=== PATIENT | female | born 1985 | race Caucasian/White ===

== ENCOUNTER 2024-05-23 01:25 | Emergency (ER) | payer BC ==
--- OUTSIDE RECORDS SUMMARY | 2024-05-23 01:29 | XMS REPORT | Continuity of Care Document ---
Author Name Unknown Address [address] [place] [address] [facility] Address [address] [place] [address] Care Team Providers Care Bin Packer Name Role Phone MILY DE LOS SANTOS Attending Clinician Unavailable RUBEN CLAUDIO Attending Clinician UnavailDESTINEE Murry Attending Clinician Unava ilable LAB90 Attending Clinician Unavailable CODY BAPTISTE Attending Clinician Unavail Candace Capone MD Attending Clinician CANDACE BARRON M.D. Attending Clinician FAVIOLA Canela M.D. Attending Clinician Unavailpriscila MENESES, USROOM2 Attending Clinician Unavailsasha MENESES, USROOM1 Attending Clinician Unavailsasha e PIANO TECHNICIAN, ROOM1 Attending Clinician Unavailable PIANO TECHNICIAN, ROOM2 Attending Clinician Unavailable ADULT, HEMOPHILIA Attending Clinician Unavailabl e PIANO TECHNICIAN, ROOM4 Attending Clinician Unavailable Doctor Unassigned, [place] Attending Clinician U AWILDA Leyva Attending Clinician Awilda Damico Attending Clinician Payers Payer Name Policy Type Policy Number Effective Date Expirati on Date Source BCBS 2 [id number] 2020 00:00:00 Problems Condition Name Condition Details Condition Category Status Onset Date Resolution Date Last Treatment Date Treating Clinician Comments Source Gastroesop hageal reflux disease without esophagiti s Gastroesop hageal reflux disease without esophagiti s Disease Active 2024-0 3-06 00:00: 00 Sarahi Lawrence - Externa l Generalize d anxiety disorder Generalize d Anxiety Disorder Problem Active 1-18 00:00: 00 [facility] Sinusitis Sinusitis Disease Active 7-15 00:00: 00 Sarahi Lawrence - Externa l Sinus headache Sinus headache Disease Active 7-15 00:00: 00 Sarahi Mondragonold - Externa l Vaginal discharge Vaginal discharge Disease Active 5-01 00:00: 00 [facility] 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 5-01 00:00: 00 [facility] Anemia in Anemia in Disease Active 5-01 00:00: 00 [facility] Screening for STD (sexually transmitte d disease) Screening for STD (sexually transmitte d disease) Disease Active 4-14 00:00: 00 [facility] High-risk in third trimester High-risk in third trimester Disease Active 1-27 00:00: 00 [facility] Encounter for screening for Streptococ cus B Encounter for screening for Streptococ cus B Disease Active 1-14 00:00: 00 [facility] High-risk in second trimester High-risk in second trimester Disease Active 2019-02 2-16 00:00: 00 [facility] Elevated LFTs Elevated LFTs Disease Active 9-30 00:00: 00 [facility] Urinary problem in female Urinary problem in female Disease Active 9-30 00:00: 00 [facility] High risk High Risk Problem Active 8-06 00:00: 00 [facility] 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 Problem Active 7-15 00:00: 00 [facility] Abnormal maternal glucose tolerance, antepartum Abnormal maternal glucose tolerance, antepartum Disease Active 0 6-29 00:00: 00 [facility] Hemophilia carrier Hemophilia carrier Disease Active 6- 00:00: 00 [facility] related nausea, antepartum related nausea, antepartum Disease Active 6-26 00:00: 00 [facility] Multigravi da of advanced maternal age in first trimester Multigravi da of advanced maternal age in first trimester Disease Active 6 00:00: 00 [facility] Supervisio n of high risk , antepartum Supervisio n of high risk , antepartum Disease Active 6 00:00: 00 [facility] Subchorion ic hemorrhage of placenta in first trimester, single or unspecifie d fetus Subchorion ic hemorrhage of placenta in first trimester, single or unspecifie d fetus Disease Active 6 00:00: 00 [facility] test positive Test Positive Problem Active 6 00:00: 00 [facility] Asymptomat ic 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 Asymptomat ic 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 Problem Active 2-11 00:00: 00 [facility] Irregular periods Irregular Periods Problem Active 211 00:00: 00 [facility] Female infertilit y Female Infertilit y Problem Active 2018-02 0-04 00:00: 00 [facility] Cyst of left ovary Cyst of Left Ovary Problem Active 8-22 00:00: 00 [facility] Left lower quadrant pain Left Lower Quadrant Pain Problem Active 7-25 00:00: 00 [facility] Gynecologi mauro examinatio n abnormal Gynecologi mauro Examinatio n Abnormal Problem Active - 00:00: 00 [facility] Simple goiter Simple Goiter Problem Active 1-09 00:00: 00 [facility] Contracept ion care education Contracept ion Care Education Problem Active - 00:00: 00 [facility] 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 [facility] Vaginal discharge Vaginal discharge Problem Active [facility] Abnormal thyroid blood test Abnormal thyroid blood test Problem Active [facility] Urinary problem in female Urinary problem in female Problem Active [facility] Encounter for supervisio n of high risk in second trimester, antepartum Encounter for supervisio n of high risk in second trimester, antepartum Problem Active [facility] Anemia in Anemia in Problem Active [facility] Encounter for screening for Streptococ cus B Encounter for screening for Streptococ cus B Problem Active [facility] Supervisio n of high risk in third trimester Supervisio n of high risk in third trimester Problem Active [facility] History of hemophilia B History of hemophilia B Problem Resolve d [facility] Encounter for consultati on Encounter for consultati on Problem Active [facility] Encounter for IUD insertion Encounter for IUD insertion Problem Active [facility] Counseling for control, intrauteri ne device Counseling for control, intrauteri ne device Problem Active [facility] Encounter for screening for infections with a predominan tly sexual mode of transmissi on Encounter for screening for infections with a predominan tly sexual mode of transmissi on Problem Active [facility] Allergies, Adverse Reactions, Alerts Allergy Name Allergy Type Status Severity Reaction(s) Onset Date Inactive Date Treating Clinician Comments Source Penicill ins Propensi ty to adverse reaction s Active 06-10 00:00: 00 [facility] Penicill in Propensi ty to adverse reaction s Active Anaphylaxis 08-05 00:00: 00 [facility] Penicill in Propensi ty to adverse reaction s Active Anaphylaxis 08-05 00:00: 00 [facility] PENICILL IN DRUG INGREDI Active High Anaphylaxis 08-05 00:00: 00 [facility] PENICILL IN Allergy to substanc e Active Fatal Anaphylaxis 02-10 00:00: 00 [facility] Penicill ins Propensi ty to adverse reaction s Active Anaphylaxis 02-10 00:00: 00 Sarahi Lawrence - Externa l NO KNOWN ALLERGIE S Drug Class Active [facility] Penicill ins Allergy to drug (finding ) Active [facility] PENICILL IN G SODIUM Allergy to substanc e Active [facility] Family History Family Member Diagnosis Comments Start Date Stop Date Sourc e Unknown Family Member Family history of hemophilia A Other [facility] Mother Family history of hypertension [facility] Mother Family history of thyroid disease [facility] Father Family history of hemophilia A [facility] Sister Family history of 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 [facility] Social History Social Habit Start Date Stop Date Quantity Comments Source Sexual orientation 2023-04-14 17:28:40 Heterosexual (finding) Sarahi Lawrence - External ASSERTION Not Sarahi Lawrence - External History SDOH Alcohol [facility] History SDOH Alcohol Binge [facility] Exposure to SARS-CoV-2 (event) Not sure [facility] History of Social function 2024-05-19 00:00:00 2024-05-19 00:00:00 Sarahi Castro External Tobacco use and exposure 2020-06-20 00:00:00 2020-06-20 00:00:00 Never used [facility] Alcohol intake 2020-06-20 00:00:00 2020-06-20 00:00:00 Current drinker of alcohol (finding) [facility] Alcohol Comment 2020-06-10 00:00:00 2020-06-10 00:00:00 social [facility] Sex 2020-05-09 17:32:10 2020-05-09 17:32:10 Female (finding) Sarahi Lawrence - External History SDOH Alcohol Frequency 2019-08-06 00:00:00 2019-08-06 00:00:00 1 [facility] Sex assigned at 1985 00:00:00 1985 00:00:00 F Sarahi Lawrence - External Smoking Status Start Date Stop Date Source Never smoked tobacco Sarahi Lawrence - External Medications Ordered Medication Name Filled Medication Name Start Date Stop Date Current Medication? Ordering Clinician Indication Dosage Frequency Signature (SIG) Comments Components Source Azithromyci n 250 MG oral Tablet 05-19 00:00: 00 05-25 04:59 :00 Yes [id number] Take 2 tablets by mouth on day 1 then 1 tablet by mouth daily for 4 days thereafter .. Sarahi perez Sertraline HCl 50 MG oral Tablet 04-15 10:57: 11 04-15 00:00 :00 No Sarahi perez Levonorgest rel (MIRENA, 52 MG, IU) 04-15 10:33: 59 04-15 00:00 :00 No by intrauteri ne route Sarahi perez CLINDAMYCIN PHOSPHATE,T OPICAL, 1 % apply externally SWAB 04-15 10:33: 59 04-15 00:00 :00 No clindamyci n phosphate 1 % topical swab Sarahi perez Pantoprazol e Sodium 40 MG oral Tablet Delayed Response 04-15 00:00: 00 05-19 00:00 :00 No [id number] 40mg QD Take 1 tablet (40 mg total) by mouth daily. Sarahi perez Ciprofloxac in HCl (Cipro) 500 MG oral Tablet 03-08 00:00: 00 03-16 05:59 :00 No [id number] 500mg Take 1 tablet (500 mg total) by mouth 2 times daily for 7 days Sarahi perez Sertraline HCl 100 MG oral Tablet 04-15 00:00: 00 Yes Sarahi perez Levonorgest rel (MIRENA, 52 MG, IU) 08-24 15:23: 17 Yes by intrauteri ne route Sarahi perez CLINDAMYCIN PHOSPHATE,T OPICAL, 1 % apply externally SWAB 08-24 15:23: 17 Yes clindamyci n phosphate 1 % topical swab Sarahi perez Mirtazapine 15 MG oral Tablet 07-05 00:00: 00 Yes [id number] 15mg Take 1 tablet (15 mg total) by mouth nightly Sarahi perez norethindro ne (Aygestin) 5 MG tablet 06-20 00:00: 00 09-19 04:59 :00 No [id number] 5mg QD Take 1 tablet (5 mg total) by mouth 1 (one) time each day. Take PRN break through bleeding [facility] ferrous sulfate 325 (65 Fe) MG tablet 06-10 14:04: 06 Yes 325mg QD Take 325 mg by mouth 1 (one) time each day with breakfast. [facility] Ferrous Sulfate 325 (65 Fe) MG Oral Tablet Ferrous Sulfate 325 (65 Fe) MG Oral Tablet 2019-02 00:00: 00 Yes FAVIOLA SANTAMARIA M.D. Take 1 tablet by mouth twice a day [facility] Azelaic Acid (Finacea) 15 % apply externally Foam 8-05 00:00: 00 Yes Finacea 15 % topical foam Sarahi perez 25/iron fum/folic/d goel (-1 ORAL) 08-05 20:05: 52 Yes Take by mouth. [facility] proMETHazin e 25 mg tablet 08-05 00:00: 00 Yes [id number] 25mg Take 1 tablet by mouth every 4 (four) hours as needed for Nausea and Vomiting (N/V). [facility] Vitamin TABS Vitamin TABS Yes [employer] [facility] Immunizations Ordered Immunization Name Filled Immunization Name Date Status Comments Source Covid-19 Vaccine (Lorenzo) 2020-07-04 00:00:00 Completed Sarahi Seybold - External Tdap (Adacel) 2020-01-12 00:00:00 Completed [facility] Influenza, seasonal, injectable 2019-12-08 00:00:00 Completed [facility] Fluzone Quadrivalent 0.5 ML Intramuscular Suspension 2019-12-08 00:00:00 Completed [facility] Covid-19 Vaccine (Lorenzo) Unknown Completed Sarahi Seybold - External Influenza Virus Vaccine, No Preserv, age 6 months and up Unknown Completed Sarahi Seybold - External Influenza, Seasonal, Injectable Unknown Completed Sarahi Mondragonold - External Tdap- (Boostrix, Adacel) Unknown Completed Sarahi Mondragonold - External Covid-19 Vaccine (Lorenzo) Unknown Completed Sarahi Seybold - External Influenza Virus Vaccine, No Preserv, age 6 months and up Unknown Completed Sarahi Mondragonold - External AFLURIA TRIVALENT MDV Unknown Completed Sarahi Seybold - External Tdap- (Boostrix, Adacel) Unknown Completed Sarahi Haileybold - External Vital Signs Vital Name Observation Time Observation Value Comments S geraldine Systolic blood pressure 2024-05-19 21:33:00 114 mm[Hg] Sarahi Seybold - External Diastolic blood pressure 2024-05-19 21:33:00 64 mm[Hg] Sarahi Haileybold - External Heart rate 2024-05-19 21:33:00 111 /min Sarahi Lawrence - External Body temperature 2024-05-19 21:33:00 36.78 Emelia Sarahi Haileybold - External Respiratory rate 2024-05-19 21:33:00 20 /min Sarahi Mondragonold - External Body height 2024-05-19 21:33:00 160 cm Saarhi Mondragonold - External Body weight 2024-05-19 21:33:00 60.895 kg Sarahi Mondragonold - External BMI 2024-05-19 21:33:00 23.78 kg/m2 Sarahi Haileybold - External Oxygen saturation in Arterial blood by Pulse oximetry 2024-05-19 21:33:00 98 /min Sarahi Mondragonold - External Body Weight 2023-09-08 00:00:00 131.8 [lb_av] [facility] BP Diastolic 2023-09-08 00:00:00 82 mm[Hg] [facility] Height 2023-09-08 00:00:00 63 [in_i] [facility] BMI (Body Mass Index) 2023-09-08 00:00:00 23.3 kg/m2 [facility] BP Systolic 2023-09-08 00:00:00 117 mm[Hg] [facility] Systolic blood pressure 2023-04-16 16:57:00 98 mm[Hg] Sarahi Seybold - External Diastolic blood pressure 2023-04-16 16:57:00 64 mm[Hg] Sarahi Haileybold - External Heart rate 2023-04-16 16:57:00 68 /min Sarahi Mondragonold - External Body temperature 2023-04-16 16:57:00 36.56 Emelia Sarahi Haileybjenna - External Respiratory rate 2023-04-16 16:57:00 18 /min Sarahi Lawrence - External Body height 2023-04-16 16:57:00 160 cm Sarahi Lawrence - External Body weight 2023-04-16 16:57:00 58.968 kg Sarahi Haileybjenna - External BMI 2023-04-16 16:57:00 23.03 kg/m2 Sarahi Haileybold - External Oxygen saturation in Arterial blood by Pulse oximetry 2023-04-16 16:57:00 99 /min Sarahi Seybold - External Systolic blood pressure 2020-06-20 19:56:00 113 mm[Hg] [facility] Diastolic blood pressure 2020-06-20 19:56:00 81 mm[Hg] [facility] Heart rate 2020-06-20 19:56:00 78 /min [facility] Body temperature 2020-06-20 19:56:00 36.67 Emelia [facility] Body height 2020-06-20 19:56:00 157.5 cm [facility] Body weight 2020-06-20 19:56:00 55.792 kg [facility] BMI 2020-06-20 19:56:00 22.50 kg/m2 [facility] Systolic blood pressure 2019-08-06 19:14:00 104 mm[Hg] [facility] Diastolic blood pressure 2019-08-06 19:14:00 67 mm[Hg] [facility] Heart rate 2019-08-06 19:14:00 81 /min [facility] Body temperature 2019-08-06 19:14:00 36.5 Emelia [facility] Respiratory rate 2019-08-06 19:14:00 16 /min [facility] Body height 2019-08-06 19:14:00 160 cm [facility] Body weight 2019-08-06 19:14:00 56.048 kg [facility] BMI 2019-08-06 19:14:00 21.89 kg/m2 [facility] Systolic blood pressure 2020-05-24 09:35:00 111 mm[Hg] Location: LUE; Position: Sitting [facility] Diastolic blood pressure 2020-05-24 09:35:00 72 mm[Hg] Location: LUE; Position: Sitting [facility] Body height 2020-05-24 09:35:00 62 [in_us] [facility] Weight 2020-05-24 09:35:00 121.5 [lb_av] [facility] Body mass index (BMI) [Ratio] 2020-05-24 09:35:00 22.22 kg/m2 [facility] Body temperature 2020-05-24 09:35:00 97.6 [degF] Method: Oral [facility] Heart Rate 2020-05-24 09:35:00 81 /min Quality: Normal [facility] O2 SAT 2020-05-24 09:35:00 98 % [facility] Systolic blood pressure 2020-04-12 14:45:00 119 mm[Hg] Location: LUE; Position: Sitting [facility] Diastolic blood pressure 2020-04-12 14:45:00 80 mm[Hg] Location: LUE; Position: Sitting [facility] Body height 2020-04-12 14:45:00 62 [in_us] [facility] Weight 2020-04-12 14:45:00 120.5 [lb_av] [facility] Body mass index (BMI) [Ratio] 2020-04-12 14:45:00 22.04 kg/m2 [facility] Body temperature 2020-04-12 14:45:00 98.2 [degF] Method: Temporal [facility] Heart Rate 2020-04-12 14:45:00 81 /min [facility] O2 SAT 2020-04-12 14:45:00 98 % [facility] Heart Rate 2020-03-22 08:17:00 99 /min [facility] O2 SAT 2020-03-22 08:17:00 98 % [facility] Systolic blood pressure 2020-03-22 08:17:00 116 mm[Hg] Location: LUE; Position: Sitting [facility] Diastolic blood pressure 2020-03-22 08:17:00 71 mm[Hg] Location: LUE; Position: Sitting [facility] Body height 2020-03-22 08:17:00 62 [in_us] [facility] Weight 2020-03-22 08:17:00 145.5 [lb_av] [facility] Body mass index (BMI) [Ratio] 2020-03-22 08:17:00 26.61 kg/m2 [facility] Body temperature 2020-03-22 08:17:00 98.3 [degF] Method: Temporal [facility] Systolic blood pressure 2020-03-15 15:35:00 108 mm[Hg] Location: LUE; Position: Sitting [facility] Diastolic blood pressure 2020-03-15 15:35:00 72 mm[Hg] Location: LUE; Position: Sitting [facility] Body height 2020-03-15 15:35:00 62 [in_us] [facility] Weight 2020-03-15 15:35:00 146.25 [lb_av] [facility] Body mass index (BMI) [Ratio] 2020-03-15 15:35:00 26.75 kg/m2 [facility] Body temperature 2020-03-15 15:35:00 99.2 [degF] Method: Temporal [facility] Heart Rate 2020-03-15 15:35:00 105 /min [facility] O2 SAT 2020-03-15 15:35:00 98 % [facility] Systolic blood pressure 2020-03-08 15:29:00 115 mm[Hg] Location: LUE; Position: Sitting [facility] Diastolic blood pressure 2020-03-08 15:29:00 75 mm[Hg] Location: LUE; Position: Sitting [facility] Body height 2020-03-08 15:29:00 62 [in_us] [facility] Weight 2020-03-08 15:29:00 144.5 [lb_av] [facility] Body mass index (BMI) [Ratio] 2020-03-08 15:29:00 26.43 kg/m2 [facility] Body temperature 2020-03-08 15:29:00 98 [degF] Method: Temporal [facility] Heart Rate 2020-03-08 15:29:00 81 /min [facility] O2 SAT 2020-03-08 15:29:00 98 % [facility] Systolic blood pressure 2020-03-01 15:15:00 119 mm[Hg] [facility] Diastolic blood pressure 2020-03-01 15:15:00 75 mm[Hg] [facility] Body height 2020-03-01 15:15:00 62 [in_us] [facility] Weight 2020-03-01 15:15:00 142.375 [lb_av] [facility] Body mass index (BMI) [Ratio] 2020-03-01 15:15:00 26.04 kg/m2 [facility] Body temperature 2020-03-01 15:15:00 98.3 [degF] [facility] Heart Rate 2020-03-01 15:15:00 94 /min [facility] O2 SAT 2020-03-01 15:15:00 98 % [facility] Systolic blood pressure 2020-02-24 10:33:00 120 mm[Hg] Location: RUE; Position: Sitting [facility] Diastolic blood pressure 2020-02-24 10:33:00 73 mm[Hg] Location: RUE; Position: Sitting [facility] Body height 2020-02-24 10:33:00 62 [in_us] [facility] Weight 2020-02-24 10:33:00 142.25 [lb_av] [facility] Body mass index (BMI) [Ratio] 2020-02-24 10:33:00 26.02 kg/m2 [facility] Body temperature 2020-02-24 10:33:00 97.7 [degF] Method: Temporal [facility] Heart Rate 2020-02-24 10:33:00 105 /min [facility] O2 SAT 2020-02-24 10:33:00 98 % Source: RA [facility] Systolic blood pressure 2020-02-16 10:45:00 112 mm[Hg] Location: RUE; Position: Sitting [facility] Diastolic blood pressure 2020-02-16 10:45:00 69 mm[Hg] Location: RUE; Position: Sitting [facility] O2 SAT 2020-02-16 10:45:00 99 % [facility] Body height 2020-02-16 10:45:00 62 [in_us] [facility] Weight 2020-02-16 10:45:00 139.25 [lb_av] [facility] Body mass index (BMI) [Ratio] 2020-02-16 10:45:00 25.47 kg/m2 [facility] Body temperature 2020-02-16 10:45:00 97.9 [degF] [facility] Heart Rate 2020-02-16 10:45:00 93 /min [facility] Systolic blood pressure 2020-01-26 09:53:00 112 mm[Hg] Location: RUE; Position: Sitting [facility] Diastolic blood pressure 2020-01-26 09:53:00 69 mm[Hg] Location: RUE; Position: Sitting [facility] Body height 2020-01-26 09:53:00 62 [in_us] [facility] Weight 2020-01-26 09:53:00 137 [lb_av] [facility] Body mass index (BMI) [Ratio] 2020-01-26 09:53:00 25.06 kg/m2 [facility] Body temperature 2020-01-26 09:53:00 97.1 [degF] Method: Temporal [facility] Heart Rate 2020-01-26 09:53:00 99 /min [facility] Systolic blood pressure 2020-01-12 15:02:00 118 mm[Hg] Location: LUE; Position: Sitting [facility] Diastolic blood pressure 2020-01-12 15:02:00 74 mm[Hg] Location: LUE; Position: Sitting [facility] Body height 2020-01-12 15:02:00 62 [in_us] [facility] Weight 2020-01-12 15:02:00 137 [lb_av] [facility] Body mass index (BMI) [Ratio] 2020-01-12 15:02:00 25.06 kg/m2 [facility] Body temperature 2020-01-12 15:02:00 97.6 [degF] Method: Temporal [facility] Heart Rate 2020-01-12 15:02:00 90 /min [facility] O2 SAT 2020-01-12 15:02:00 98 % [facility] Systolic blood pressure 2019-12-08 09:12:00 119 mm[Hg] Location: RUE; Position: Sitting [facility] Diastolic blood pressure 2019-12-08 09:12:00 73 mm[Hg] Location: RUE; Position: Sitting [facility] Body height 2019-12-08 09:12:00 62 [in_us] [facility] Weight 2019-12-08 09:12:00 132 [lb_av] [facility] Body mass index (BMI) [Ratio] 2019-12-08 09:12:00 24.14 kg/m2 [facility] Body temperature 2019-12-08 09:12:00 97.4 [degF] Method: Temporal [facility] Heart Rate 2019-12-08 09:12:00 93 /min [facility] O2 SAT 2019-12-08 09:12:00 100 % Source: RA [facility] Systolic blood pressure 2019-11-10 15:24:00 111 mm[Hg] Location: LUE; Position: Sitting [facility] Diastolic blood pressure 2019-11-10 15:24:00 65 mm[Hg] Location: LUE; Position: Sitting [facility] Body height 2019-11-10 15:24:00 62 [in_us] [facility] Weight 2019-11-10 15:24:00 127 [lb_av] [facility] Body mass index (BMI) [Ratio] 2019-11-10 15:24:00 23.23 kg/m2 [facility] Body temperature 2019-11-10 15:24:00 96 [degF] Method: Temporal [facility] Heart Rate 2019-11-10 15:24:00 89 /min [facility] O2 SAT 2019-11-10 15:24:00 98 % Source: RA [facility] Systolic blood pressure 2019-10-05 09:46:00 107 mm[Hg] Location: RUE; Position: Sitting [facility] Diastolic blood pressure 2019-10-05 09:46:00 70 mm[Hg] Location: RUE; Position: Sitting [facility] Body height 2019-10-05 09:46:00 62 [in_us] [facility] Weight 2019-10-05 09:46:00 55.33 kg [facility] Body mass index (BMI) [Ratio] 2019-10-05 09:46:00 22.31 kg/m2 [facility] Body temperature 2019-10-05 09:46:00 98.2 [degF] [facility] Heart Rate 2019-10-05 09:46:00 70 /min [facility] Respiratory rate 2019-10-05 09:46:00 18 /min [facility] Procedures Procedure Date / Time Performed Performing Clinician Source MAMMO, screening, digital, bilateral 2023-09-08 00:00:00 [facility] [Q] CHLAMYDIA/N. GONORRHOEAE RNA, TMA 2020-05-24 00:00:00 [facility] [QL] CBC (INCLUDES DIFF/PLT) 2020-04-12 00:00:00 [facility] [Q] RPR (DX) W/REFL TITER AND CONFIRM TESTING (REFL) 2020-02-24 00:00:00 [facility] [Q] STREPTOCOCCUS, GROUP B CULTURE (Genital Strep Screen) 2020-02-24 00:00:00 [facility] [Q] HIV AB, HIV 1/2, EIA, WITH REFLEXES 2020-02-24 00:00:00 [facility] . [facility] - Affirm VPIII (BV Panel) 2020-02-24 00:00:00 [facility] [Q] FACTOR VIII ACTIVITY, CHROMOGENIC 2020-02-16 00:00:00 [facility] [QL] COAG FACTOR VIII ACTIVITY 2020-02-16 00:00:00 [facility] [QL] CBC (INCLUDES DIFF/PLT) 2020-01-12 00:00:00 [facility] [QL] CMP W/EGFR 2020-01-12 00:00:00 [facility] [Q] GLUCOSE, GESTATIONAL SCREEN (50G)-130 CUTOFF 2019-12-08 00:00:00 [facility] [QL] CBC (INCLUDES DIFF/PLT) 2019-12-08 00:00:00 [facility] [QL] T4, FREE 2019-12-08 00:00:00 [facility] [QL] TSH, 3RD GENERATION 2019-12-08 00:00:00 [facility] [QL] CULTURE, URINE, ROUTINE 2019-12-08 00:00:00 [facility] [QL] URINALYSIS, COMPLETE 2019-12-08 00:00:00 [facility] . [facility] - Affirm VPIII (BV Panel) 2019-11-10 00:00:00 [facility] [QL] TSH, 3RD GENERATION W/REFLEX TO FT4 2019-11-10 00:00:00 [facility] [QL] CULTURE, URINE, ROUTINE 2019-11-10 00:00:00 [facility] AUTHORIZATION FOR RELEASE OF PHI 2019-10-22 05:01:00 Doctor Unassigned, [place] [facility] [Q] FACTOR VIII ACTIVITY, CHROMOGENIC 2019-10-05 00:00:00 [facility] [QL] CBC (INCLUDES DIFF/PLT) 2019-10-05 00:00:00 [facility] [QL] FERRITIN 2019-10-05 00:00:00 [facility] URINE CULTURE 2019-08-06 20:34:00 [facility] CH[facility] AMPLIF[facility] ASSAY 2019-08-06 20:34:00 Awilda Zamudio [facility] GLUCOSE 1 HOUR POST PRANDIAL 2019-08-06 20:33:00 [facility] [place] [facility] WITH DIFFERENTIAL 2019-08-06 20:33:00 Chiara Zamudio [facility] HEPATITIS B SURFACE ANTIGEN 2019-08-06 20:33:00 Awilda Zamudio [facility] HIV 1/2 AG-AB WITH REFLEX 2019-08-06 20:33:00 Awilda Zamudio [facility] HB ABO GROUPING 2019-08-06 20:26:00 Awilda Zamudio [facility] POCT URINALYSIS 2019-08-06 19:08:00 Awilda Zamudio [facility] POCT TEST 2019-08-06 19:08:00 Martin Zamudio [facility] Oral / Dental Surgery 2018-01-06 00:00:00 [facility] Tonsillectomy 1987-04-20 00:00:00 [facility] History of Oral surgery [facility] History of Oral Surgery Tooth Extraction [place] [facility] History of Tonsillectomy [facility] of [facility] Encounters Start Date/Time End Date/Time Encounter Type Admission Type Attending Clinicians Care Facility Care Department Encounter ID Source 2024-05-19 16:30:00 2024-05-19 16:30:00 Outpatient MILY DE LOS SANTOS [id number] [facility] 2023-09-17 00:00:00 2023-09-17 00:00:00 LYNN Aden: [address], [address], [place] [address] , Ph. [facility] - [facility]BZW[facility]* [id number] [facility] 2023-09-08 00:00:00 2023-09-08 00:00:00 LYNN Aden: [address], [place] [address] , Ph. [facility] - [facility]BZ[facility]* [id number] [facility] 2023-05-17 00:00:00 2023-05-17 00:00:00 Outpatient RUBEN CLAUDIO [id number] [facility] 2023-05-13 11:00:00 2023-05-13 11:00:00 Outpatient RUBEN CLAUDIO [id number] [facility] 2023-04-25 11:15:00 2023-04-25 11:15:00 Outpatient DESTINEE GAGNON [id number] [facility] 2023-04-17 12:00:00 2023-04-17 12:00:00 Outpatient LAB90 SARAHI CAMARENA [id number] [facility] 2023-04-16 11:00:00 2023-04-16 11:00:00 Outpatient RUBEN CLAUDIO [id number] [facility] 2022-03-08 15:15:00 2022-03-08 15:15:00 Outpatient CODY BAPTISTE [id number] [facility] 2020-08-24 15:30:00 2020-08-24 15:30:00 Outpatient DESTINEE GAGNON [id number] [facility] 2020-06-20 14:35:55 2020-06-20 15:50:01 Office Visit Candace Barron [place] [id number] [facility] 2020-05-24 09:30:00 2020-05-24 09:30:00 Appointmen t; CANDACE BARRON M.D. GALFIONE, KYLIE, M.D. [facility] [id number] [facility] 2020-05-24 09:00:00 2020-05-24 09:00:00 Appointmen t; FAVIOLA SANTAMARIA M.D. AYAD, MARTINA, M.D. [facility] [id number] [facility] 2020-04-12 14:30:00 2020-04-12 14:30:00 Appointmen t; FAVIOLA SANTAMARIA M.D. AYAD, MARTINA, M.D. [facility] [id number] [facility] 2020-03-22 15:00:00 2020-03-22 15:00:00 Appointmen t; FAVIOLA SANTAMARIA M.D. AYAD, MARTINA, M.D. [facility] [id number] [facility] 2020-03-22 08:30:00 2020-03-22 08:30:00 Appointmen t; FAVIOLA SANTAMARIA M.D. AYAD, MARTINA, M.D. [facility] [id number] [facility] 2020-03-22 08:00:00 2020-03-22 08:00:00 Appointmen t; ZAIRA, USROOM2 ZAIRA, [facility] [id number] [facility] 2020-03-15 15:00:00 2020-03-15 15:00:00 Appointmen t; FAVIOLA SANTAMARIA M.D. AYAD, MARTINA, M.D. [facility] [id number] [facility] 2020-03-15 15:00:00 2020-03-15 15:00:00 Appointmen t; FAVIOLA SANTAMARIA M.D. AYAD, MARTINA, M.D. [facility] [id number] [facility] 2020-03-15 14:30:00 2020-03-15 14:30:00 Appointmen t; BELLAIRE, USROOM1 BELLAIRE, USROOM1 [facility] [id number] [facility] 2020-03-08 15:30:00 2020-03-08 15:30:00 Appointmen t; FAVIOLA SANTAMRAIA M.D. AYAD, MARTINA, M.D. [facility] [id number] [facility] 2020-03-08 15:00:00 2020-03-08 15:00:00 Appointmen t; FAVIOLA SANTAMARIA M.D. AYAD, MARTINA, M.D. [facility] [id number] [facility] 2020-03-08 15:00:00 2020-03-08 15:00:00 Appointmen t; BELLAIRE, USROOM2 BELLAIRE, USROOM2 [facility] [id number] [facility] 2020-03-01 15:00:00 2020-03-01 15:00:00 Appointmen t; FAVIOLA SANTAMARIA M.D. AYAD, MARTINA, M.D. [facility] [id number] [facility] 2020-03-01 15:00:00 2020-03-01 15:00:00 Appointmen t; FAVIOLA SANTAMARIA M.D. AYAD, MARTINA, M.D. [facility] [id number] [facility] 2020-03-01 14:30:00 2020-03-01 14:30:00 Appointmen t; BELLAIRE, USROOM1 BELLAIRE, USROOM1 [facility] [id number] [facility] 2020-02-24 09:30:00 2020-02-24 09:30:00 Appointmen t; FAVIOLA SANTAMARIA M.D. AYAD, MARTINA, M.D. [facility] Obstetrics and Gynecology [facility] [id number] [facility] 2020-02-24 09:00:00 2020-02-24 09:00:00 Appointmen t; PIANO TECHNICIAN, ROOM1 PIANO TECHNICIAN, ROOM1 [facility] [id number] [facility] 2020-02-16 11:30:00 2020-02-16 11:30:00 Appointmen t; FAVIOLA SANTAMARIA M.D. AYAD, MARTINA, M.D. [facility] [id number] [facility] 2020-02-16 11:00:00 2020-02-16 11:00:00 Appointmen t; PIANO TECHNICIAN, ROOM2 PIANO TECHNICIAN, ROOM2 [facility] [id number] [facility] 2020-02-16 09:30:00 2020-02-16 09:30:00 Appointmen t; ADULT, HEMOPHILIA ADULT, HEMOPHILIA [facility] [id number] [facility] 2020-01-26 10:00:00 2020-01-26 10:00:00 Appointmen t; FAVIOLA SANTAMARIA M.D. AYAD, MARTINA, M.D. [facility] [id number] [facility] 2020-01-12 15:30:00 2020-01-12 15:30:00 Appointmen t; FAVIOLA SANTAMARIA M.D. AYAD, MARTINA, M.D. [facility] [id number] [facility] 2020-01-12 15:00:00 2020-01-12 15:00:00 Appointmen t; PIANO TECHNICIAN, ROOM1 PIANO TECHNICIAN, ROOM1 [facility] [id number] [facility] 2019-12-08 09:00:00 2019-12-08 09:00:00 Appointmen t; FAVIOLA SANTAMARIA M.D. AYAD, MARTINA, M.D. [facility] [id number] [facility] 2019-11-10 14:30:00 2019-11-10 14:30:00 Appointmen t; FAVIOLA SANTAMARIA M.D. AYAD, MARTINA, M.D. [facility] [id number] [facility] 2019-11-10 13:45:00 2019-11-10 13:45:00 Appointmen t; PIANO TECHNICIAN, ROOM4 PIANO TECHNICIAN, ROOM4 [facility] [id number] [facility] 2019-10-22 00:00:00 2019-10-22 00:00:00 Orders Only Doctor Unassigned, [facility] [id number] [facility] 2019-10-05 10:00:00 2019-10-05 10:00:00 Appointmen t; ADULT, HEMOPHILIA ADULT, HEMOPHILIA [facility] - [facility] [id number] [facility] 2019-09-02 08:45:00 2019-09-02 08:45:00 Outpatient R AWILDA ZAMUDIO [facility] [id number] [facility] 2019-08-30 09:00:00 2019-08-30 09:00:00 Outpatient R [facility] [id number] [facility] 2019-08-23 09:30:00 2019-08-23 09:30:00 Outpatient R [facility] [id number] [facility] 2019-08-09 00:00:00 2019-08-09 00:00:00 Telephone Awilda Zamudio [facility] PIANO TECHNICIAN [facility] [id number] [facility] 2019-08-06 14:02:51 2019-08-06 15:34:05 Initial Visit Awilda Zamudio [facility] PIANO TECHNICIAN [facility] [id number] [facility] 2019-08-06 13:15:00 2019-08-06 13:15:00 Outpatient R AWILDA ZAMUDIO [facility] [id number] [facility] Results Test Description Test Time Test Comments Results Result Co mments Source [facility] function 2000 panel - Serum or [id number] 00:00:00* Test Item Value Reference Range Interpretation Comme nts total protein (test code = t otal protein) 6.8 g/dL 6.0-8.3 albumin (test code = albumin) 4.4 g/dL 3.5-5.2 total bilirubin (test code = total bilirubin) 0.8 mg/dL 0.0-1.2 direct bilirubin (test code = direct bilirubin) 0.3 mg/dL 0.0-0.3 alkaline phosphatase (test c ode = alkaline phosphatase) 67 U/L 44-147 AST (SGOT) (test code = AST (SGOT)) 18 U/L 0-32 ALT (SGPT) (test code = ALT (SGPT)) 10 U/L 0-33 globulin (test code = globulin) 2.4 g/dL 1.7-3.7 A/G ratio (test code = A/G ratio) 1.8 calc. 1.1-2.9 [facility] - Serum or [id number] 00:00:00* Test Item Value Reference Range Interpretation Comme nts cholesterol (test code = cholesterol) 230 mg/dL 0-200 H triglycerides (test code = triglycerides) 106 mg/dL 10-150 HDL cholesterol (test code = HDL cholesterol) 60 mg/dL >50 HDL risk factor (test code = HDL risk factor) 3.8 calc. VLDL cholesterol (test code = VLDL cholesterol) 21 calc dldl (test code = dldl) 152 mg/dL <100 [facility] [Units/volume] in Serum or [id number] 00:00:00* Test Item Value Reference Range Interpretation Comme nts FSH (test code = FSH) [facility]1 [facility] or [id number] 00:00:00* Test Item Value Reference Range Interpretation Comme nts sodium (test code = sodium) 140 mmol/L 136-145 potassium (test code = potassium) 4.4 mmol/L 3.5-5.5 chloride (test code = chloride) 101 mmol/L 98-107 CO2 (test code = CO2) 27 mmol/ L 23-31 glucose (test code = glucose) 77 mg/dL 70-99 BUN (test code = BUN) 16 mg/dL 6-20 creatinine (test code = creatinine) 0.8 mg/dL 0.5-0.9 BUN/creatinine ratio (test code = BUN/creatinine ratio) 20.0 calc 10.0-28.0 eGFR non- (test code = eGFR non-) 98.526 mL/min/1.73A? >60.000 eGFR (test code = eGFR ) 118.231 mL/min/1.73A? >60.000 [facility] [Mass/volume] in Serum or [id number] 00:00:00* Test Item Value Reference Range Interpretation Comme nts prolactin (test code = prolactin) 21.0 NG/mL 4.8-23.3 [facility] [Units/volume] in Serum or [id number] 00:00:00* Test Item Value Reference Range Interpretation Comme nts TSH (test code = TSH) 0.633 uIU/mL 0.500-4.530 [facility]stradiol (E2) [Mass/volume] in Serum or [id number] 00:00:00 * Test Item Value Reference Range Interpretation Comme nts estradiol (test code = estradiol) 119.0 pg/mL 6.1-91.9 [facility]hori[facility]adotropin.beta subunit [Units/volume] in Serum or Plasma 2023-09-11 00:00:00* Test Item Value Reference Range Interpretation Comme nts HCG (test code = HCG) < 5 [facility], LB + [id number] 00:00:00* Test Item Value Reference Range Interpretation Comme nts LMP date: (test code = LMP date:) 09/01/2023 Pap, liquid-based (test code = Pap, liquid-based) NILM nilm source (liquid-based cytology): (test code = source (liquid-based cytology):) CERVICAL (WHICH INCLUDES ENDOCERVICAL) HPV high risk DNA (non 16/18) (test code = HPV high risk DNA (non 16/18)) NOT DETECTED not detected HPV high risk DNA type 16 (test code = HPV high risk DNA type 16) NOT DETECTED not detected HPV high risk DNA type 18 (test code = HPV high risk DNA type 18) NOT DETECTED not detected [facility][O] Urine Test (in office)2020-05-24 10:43:00* Test Item Value Reference Range Interpretation Comme nts Test, Urine; Shelby l (test code = 2106-3) neg N Control Line Present? (test code = Control Line Present?) Yes N [facility][Q] CHLAMYDIA/N. GONORRHOEAE RNA, [id number] 00:00:00* Test Item Value Reference Range Interpretation Comme nts CHLAMYDIA TRACHOMATIS RNA, TMA, UROGENITAL; Normal (test code = 71884-9) NOT DETECTED NOT DETECTED N NEISSERIA GONORRHOEAE RNA, TMA, UROGENITAL; Normal (test code = 43235-1) NOT DETECTED NOT DETECTED N See Comment (test code = See Comment) See Comment The analytic al performance characteristics of thisassay, when used to test SurePath(TM) specimens have beendetermined by [employer]. The modifications havenot been cleared or approved by the FDA. This assay hasbeen validated pursuant to the CLIA regulations and isused for clinical purposes. For additional information, please refer tohttps://education.[employer]/faq /JUO388(This link is being provided for information/educationa l purposes only.) SPECIMEN RECEIVED DATE AND TIME: [id number] [facility][QL] CBC (INCLUDES DIFF/PLT)2020-04-12 16:09:00* Test Item Value Reference Range Interpretation Comme nts WHITE BLOOD CELL COUNT (test code = WHITE BLOOD CELL COUNT) 9.0 {Thousand/u} 3.8-10.8 N RED BLOOD CELL COUNT (test code = RED BLOOD CELL COUNT) 4.71 {Million/uL} 3.80-5.10 N HEMOGLOBIN; Normal (test code = 45992-8) 13.1 g/dl 11.7-15.5 N HEMATOCRIT; Normal (test code = 4544-3) 39.6 % 35.0-45.0 N MCV; Normal (test code = 787-2) 84.1 fL 80.0-100.0 N MCHC; Normal (test code = 67292-2) 33.1 g/dl 32.0-36.0 N RDW; Normal (test code = 788-0) 12.3 % 11.0-15.0 N PLATELET COUNT; Above High Threshold (test code = 777-3) 462 {Thousand/u} 140-400 MPV; Normal (test code = 53777-5) 9.5 fL 7.5-12.5 N ABSOLUTE NEUTROPHILS (test code = ABSOLUTE NEUTROPHILS) 5139 {cells/uL} 7828-0117 N ABSOLUTE LYMPHOCYTES (test code = ABSOLUTE LYMPHOCYTES) 3024 {cells/uL} 850-3900 N ABSOLUTE MONOCYTES (test code = ABSOLUTE MONOCYTES) 594 {cells/uL} 200-950 N ABSOLUTE EOSINOPHILS (test code = ABSOLUTE EOSINOPHILS) 171 {cells/uL} 15-500 N ABSOLUTE BASOPHILS (test code = ABSOLUTE BASOPHILS) 72 {cells/uL} 0-200 N NEUTROPHILS (test code = NEUTROPHILS) 57.1 % N LYMPHOCYTES (test code = LYMPHOCYTES) 33.6 % N MONOCYTES; Normal (test code = 24303-4) 6.6 % N EOSINOPHILS; Normal (test code = 08072-2) 1.9 % N BASOPHILS; Normal (test code = 37851-6) 0.8 % N REPORT COMMENT:FASTING:[facility]. [facility] - Affirm VPIII (BV Panel) 2020-02-24 13:54:00* Test Item Value Reference Range Interpretation Comme nts Case (test code = Case) Click ImageLink button for report. A [facility][Q] HIV-1/2 Antigen and Antibodies, Fourth Generation, with [id number] 10:29:00* Test Item Value Reference Range Interpretation Comme nts HIV AG/AB, 4TH GEN; Normal (test code = 13040-8) NON-REACTIVE NON-REACTIVE N HIV-1 antigen an d HIV-1/HIV-2 antibodies were notdetected. There is no laboratory evidence of HIVinfection. PLEASE NOTE: This information has been disclosed toyou from records whose confidentiality may beprotected by state law. If your state requires suchprotection, then the state law prohibits you frommaking any further disclosure of the informationwithout the specific written consent of the personto whom it pertains, or as otherwise permitted by law.A general authorization for the release of medical orother information is NOT sufficient for this purpose. For additional information please refer tohttp://education.[employer]/faq/QBJ659(Thi s link is being provided for informational/educational purposes only.) The performance of this assay has not been clinicallyvalidated in patients less than 2 years old. [facility][Q] RPR (DX) W/REFL TITER AND CONFIRM TESTING (REFL)2020-02-24 10:29:00* Test Item Value Reference Range Interpretation Comme nts RPR (DX) W/REFL TITER AND CONFIRMATORY TESTING (test code = RPR (DX) W/REFL TITER AND CONFIRMATORY TESTING) NON-REACTIVE NON-REACTIVE N [facility][Q] STREPTOCOCCUS, GROUP B CULTURE (Genital Strep Screen)2020-02-24 10:29:00* Test Item Value Reference Range Interpretation Comme nts CULTURE (test code = CULTURE) See Comment STREPTOCOCCUS, G ROUP B CULTURE Micro Number: [id number] Test Status: Final Specimen Source: VAGINAL/ANORECTAL Specimen Quality: Adequate Result: No group B Streptococcus isolated Note per CDC guidelines optimal recovery is achieved by swabbing both the lower vagina and rectum (through the anal sphincter). [facility][QL] CMP [id number] 16:11:00* Test Item Value Reference Range Interpretation Comme nts GLUCOSE; Normal (test code = 1547-9) 65 mg/dl 65-139 N Non-fasting reference interval UREA NITROGEN (BUN) (test code = UREA NITROGEN (BUN)) 8 mg/dl 7-25 N CREATININE (test code = CREATININE) 0.55 mg/dl 0.50-1.10 N eGFR NON-AFR. TAJIK (test code = eGFR NON-AFR. TAJIK) 122 {ML/MIN/1.7} > OR = 60 N eGFR (test code = eGFR ) 141 {ML/MIN/1.7} > OR = 60 N BUN/CREATININE RATIO (test code = BUN/CREATININE RATIO) NOT APPLICABLE 6-22 SODIUM (test code = SODIUM) 137 mmol/L 135-146 N POTASSIUM (test code = POTASSIUM) 4.1 mmol/L 3.5-5.3 N CHLORIDE (test code = CHLORIDE) 105 mmol/L 98-110 N CARBON DIOXIDE (test code = CARBON DIOXIDE) 28 mmol/L 20-32 N CALCIUM (test code = CALCIUM) 8.8 mg/dl 8.6-10.2 N PROTEIN, TOTAL (test code = PROTEIN, TOTAL) 5.5 g/dl 6.1-8.1 ALBUMIN (test code = ALBUMIN) 3.1 g/dl 3.6-5.1 GLOBULIN (test code = GLOBULIN) 2.4 {G/DL CALC} 1.9-3.7 N ALBUMIN/GLOBULIN RATIO (test code = ALBUMIN/GLOBULIN RATIO) 1.3 {CALC} 1.0-2.5 N BILIRUBIN, TOTAL; Normal (test code = 80785-6) 0.5 mg/dl 0.2-1.2 N ALKALINE PHOSPHATASE (test code = ALKALINE PHOSPHATASE) 77 u/l 31-125 N AST; Normal (test code = 1916-6) 15 u/l 10-30 N ALT; Normal (test code = 1742-6) 12 u/l 6-29 N [facility][QL] CBC (INCLUDES DIFF/PLT)2020-01-12 16:11:00* Test Item Value Reference Range Interpretation Comme nts WHITE BLOOD CELL COUNT (test code = WHITE BLOOD CELL COUNT) 10.4 {Thousand/u} 3.8-10.8 N RED BLOOD CELL COUNT (test code = RED BLOOD CELL COUNT) 3.96 {Million/uL} 3.80-5.10 N HEMOGLOBIN; Below Low Threshold (test code = 12171-7) 11.4 g/dl 11.7-15.5 HEMATOCRIT; Below Low Threshold (test code = 4544-3) 34.6 % 35.0-45.0 MCV; Normal (test code = 787-2) 87.4 fL 80.0-100.0 N MCHC; Normal (test code = 29028-9) 32.9 g/dl 32.0-36.0 N RDW; Normal (test code = 788-0) 13.3 % 11.0-15.0 N PLATELET COUNT; Normal (test code = 777-3) 223 {Thousand/u} 140-400 N MPV; Normal (test code = 20079-5) 10.1 fL 7.5-12.5 N ABSOLUTE NEUTROPHILS (test code = ABSOLUTE NEUTROPHILS) 7342 {cells/uL} 6614-6753 N ABSOLUTE LYMPHOCYTES (test code = ABSOLUTE LYMPHOCYTES) 2049 {cells/uL} 850-3900 N ABSOLUTE MONOCYTES (test code = ABSOLUTE MONOCYTES) 915 {cells/uL} 200-950 N ABSOLUTE EOSINOPHILS (test code = ABSOLUTE EOSINOPHILS) 73 {cells/uL} 15-500 N ABSOLUTE BASOPHILS (test code = ABSOLUTE BASOPHILS) 21 {cells/uL} 0-200 N NEUTROPHILS (test code = NEUTROPHILS) 70.6 % N LYMPHOCYTES (test code = LYMPHOCYTES) 19.7 % N MONOCYTES; Normal (test code = 40807-4) 8.8 % N EOSINOPHILS; Normal (test code = 31664-0) 0.7 % N BASOPHILS; Normal (test code = 50723-6) 0.2 % N [facility][Q] GLUCOSE, GESTATIONAL SCREEN (50G)-130 [id number] 10:09:00 * Test Item Value Reference Range Interpretation Comme nts GLUCOSE, GESTATIONAL SCREEN (50G)-130 CUTOFF; Normal (test code = 62967-5) 124 mg/dl <135 N [facility][QL] URINALYSIS, [id number] 10:09:00* Test Item Value Reference Range Interpretation Comme nts COLOR; Normal (test code = 5778-6) YELLOW YELLOW N APPEARANCE (test code = APPEARANCE) CLEAR CLEAR N SPECIFIC GRAVITY; Normal (te st code = 2965-2) 1.026 1.001-1.035 N PH; Normal (test code = 2756-5) 6.5 5.0-8.0 N GLUCOSE; Abnormal (test code = 1547-9) 1+ NEGATIVE A BILIRUBIN; Normal (test code = 07420-1) NEGATIVE NEGATIVE N KETONES; Normal (test code = 82140-2) NEGATIVE NEGATIVE N OCCULT BLOOD; Normal (test c ode = 62264-2) NEGATIVE NEGATIVE N PROTEIN; Normal (test code = 27997-9) NEGATIVE NEGATIVE N NITRITE; Normal (test code = 82546-3) NEGATIVE NEGATIVE N LEUKOCYTE ESTERASE (test cod e = LEUKOCYTE ESTERASE) NEGATIVE NEGATIVE N WBC; Normal (test code = 6690-2) 0-5 < OR = 5 N RBC; Normal (test code = 789-8) 0-2 < OR = 2 N SQUAMOUS EPITHELIAL CELLS; A bnormal (test code = 98501-9) 20-40 < OR = 5 A BACTERIA; Abnormal (test cod e = 630-4) FEW NONE SEEN A HYALINE CAST; Normal (test c ode = 59934-0) NONE SEEN NONE SEEN N [facility][QL] CBC (INCLUDES DIFF/PLT)2019-12-08 10:09:00* Test Item Value Reference Range Interpretation Comme nts WHITE BLOOD CELL COUNT (test code = WHITE BLOOD CELL COUNT) 9.2 {Thousand/u} 3.8-10.8 N RED BLOOD CELL COUNT (test code = RED BLOOD CELL COUNT) 3.73 {Million/uL} 3.80-5.10 HEMOGLOBIN; Below Low Threshold (test code = 90057-4) 10.7 g/dl 11.7-15.5 HEMATOCRIT; Below Low Threshold (test code = 4544-3) 32.3 % 35.0-45.0 MCV; Normal (test code = 787-2) 86.6 fL 80.0-100.0 N MCHC; Normal (test code = 41854-4) 33.1 g/dl 32.0-36.0 N RDW; Normal (test code = 788-0) 13.6 % 11.0-15.0 N PLATELET COUNT; Normal (test code = 777-3) 243 {Thousand/u} 140-400 N MPV; Normal (test code = 24931-2) 10.2 fL 7.5-12.5 N ABSOLUTE NEUTROPHILS (test code = ABSOLUTE NEUTROPHILS) 6780 {cells/uL} 4826-9654 N ABSOLUTE LYMPHOCYTES (test code = ABSOLUTE LYMPHOCYTES) 1592 {cells/uL} 850-3900 N ABSOLUTE MONOCYTES (test code = ABSOLUTE MONOCYTES) 736 {cells/uL} 200-950 N ABSOLUTE EOSINOPHILS (test code = ABSOLUTE EOSINOPHILS) 64 {cells/uL} 15-500 N ABSOLUTE BASOPHILS (test code = ABSOLUTE BASOPHILS) 28 {cells/uL} 0-200 N NEUTROPHILS (test code = NEUTROPHILS) 73.7 % N LYMPHOCYTES (test code = LYMPHOCYTES) 17.3 % N MONOCYTES; Normal (test code = 04221-4) 8.0 % N EOSINOPHILS; Normal (test code = 36384-7) 0.7 % N BASOPHILS; Normal (test code = 55224-5) 0.3 % N [facility][QL] T4, [id number] 10:09:00* Test Item Value Reference Range Interpretation Comme nts T4, FREE (test code = T4, FREE) 0.8 ng/dl 0.8-1.8 [facility][QL] TSH, 3RD [id number] 10:09:00* Test Item Value Reference Range Interpretation Comme nts TSH; Normal (test code = 96300-3) 0.42 {MIU/L} N Reference Range > or = 20 Years 0.40-4.50 Ranges First trimester 0.26-2.66 Second trimester 0.55-2.73 Third trimester 0.43-2.91 [facility][QL] CULTURE, URINE, [id number] 10:09:00* Test Item Value Reference Range Interpretation Comme nts CULTURE (test code = CULTURE) See Comment CULTURE, URINE, ROUTINE Micro Number: [id number] Test Status: Final Specimen Source: URINE, CLEAN CATCH Specimen Quality: Adequate Result: No Growth [facility][QL] TSH, 3RD GENERATION W/REFLEX TO [id number] 16:12:00* Test Item Value Reference Range Interpretation Comme nts TSH, 3RD GENERATION W/REFLEX TO FT4 (test code = TSH, 3RD GENERATION W/REFLEX TO FT4) 0.46 {MIU/L} N Reference Range > or = 20 Years 0.40-4.50 Ranges First trimester 0.26-2.66 Second trimester 0.55-2.73 Third trimester 0.43-2.91 [facility][QL] CULTURE, URINE, [id number] 16:12:00* Test Item Value Reference Range Interpretation Comme nts CULTURE (test code = CULTURE) See Comment CULTURE, URINE, ROUTINE Micro Number: [id number] Test Status: Final Specimen Source: URINE Specimen Quality: Adequate Result: No Growth [facility]. [facility] - Affirm VPIII (BV Panel)2019-11-10 00:00:00* Test Item Value Reference Range Interpretation Comme nts Case (test code = Case) Click ImageLink button for report. N [facility][Q] FACTOR VIII ACTIVITY, [id number] 11:30:00* Test Item Value Reference Range Interpretation Comme nts FACTOR VIII, CHROMOGENIC (te st code = FACTOR VIII, CHROMOGENIC) 92.0 N [facility][QL] [id number] 11:30:00* Test Item Value Reference Range Interpretation Comme nts FERRITIN (test code = FERRITIN) 82 N [facility][QL] CBC (INCLUDES DIFF/PLT)2019-10-05 11:30:00* Test Item Value Reference Range Interpretation Comme nts WBC (test code = WBC) 10.0 N RBC (test code = RBC) 4.35 N HGB (test code = HGB) 12.5 N HCT (test code = HCT) 36.1 N MCV (test code = MCV) 82.9 N MCH (test code = MCH) 28.7 N MCHC (test code = MCHC) 34.7 N RDW (test code = RDW) 13.1 N PLATELET COUNT, AUTOMATED (t est code = PLATELET COUNT, AUTOMATED) 259 N MEAN PLATELET VOLUME (test c ode = MEAN PLATELET VOLUME) 8.2 N NEUTROPHILS (%) (test code = NEUTROPHILS (%)) 70.1 N LYMPHOCYTES (%) (test code = LYMPHOCYTES (%)) 21.3 N MONOCYTES (%) (test code = M ONOCYTES (%)) 7.4 N EOSINOPHILS (%) (test code = EOSINOPHILS (%)) 0.9 N BASOPHILS (%) (test code = B ASOPHILS (%)) 0.3 N NEUTROPHILS# (test code = NEUTROPHILS#) 7.0 N LYMPHOCYTES# (test code = LYMPHOCYTES#) 2.1 N MONOCYTES # (test code = MONOCYTES #) 0.7 N EOS# (test code = EOS#) 0.1 N [facility] [id number] 13:01:00* Test Item Value Reference Range Interpretation Comme nts URINE CULTURE (test code = 630-4) No aerobic growth (< 1000 CFU/mL) [facility] CHLAMYDIA AMPLIFIED [id number] 23:50:00* Test Item Value Reference Range Interpretation Comme nts C. trachomatis Nucleic Acid (test code = 32290-2) Negative Negative N. gonorrhoeae Nucleic Acid (test code = 35849-2) Negative Negative Lab Interpretation (test cod e = 18091-2) Normal [facility] AG-AB WITH [id number] 06:54:00* Test Item Value Reference Range Interpretation Comme nts HIV Semi-quantitative (test code = 00154-8) Negative Negative DAVID (test code = DAVID) Non-reactive for HIV-1 antigen and HIV-1/HIV-2 antibodies. ?No laboratory evidence of HIV infection. ?Repeat in 2-4 weeks if acute HIV infection is suspected. [facility], BLOOD [id number] 06:40:44 * Test Item Value Reference Range Interpretation Comme nts ABO & RH (test code = 20) O POSITIVE Performed at [facility] B Laboratory Services - [facility] Blood [id number] [place] [id number] Free: [phone] No. [id number] IAT (test code = 1185) Negative Performed at [facility] B Laboratory Services - [facility] Blood [id number] [place] [id number] Free: [phone] No. [id number] [facility] SURFACE [id number] 04:29:00 * Test Item Value Reference Range Interpretation Comme nts HBsAg Semi-Quantitative (isabel t code = 5195-3) Negative Negative [facility] 1 HOUR POST [id number] 03:39:00* Test Item Value Reference Range Interpretation Comme nts GLUC 1 HR (test code = 6341371927) 154 mg/dL 120-170 Lab Interpretation (test cod e = 47195-1) Normal [facility] WITH [id number] 02:46:00* Test Item Value Reference Range Interpretation Comme nts WBC (test code = 6690-2) See_Comment [Automated Cold Genesysa ge] The system which generated this result transmitted reference range: 4.30 - 11.10 10*3/?L. The reference range was not used to interpret this result as normal/abnormal. RBC (test code = 789-8) See_Comment [Automated Cold [employer] ge] The system which generated this result transmitted reference range: 3.93 - 5.25 10*6/?L. The reference range was not used to interpret this result as normal/abnormal. HGB (test code = 718-7) 12.6 g/dL 11.6-15 HCT (test code = 4544-3) 39.1 % 35.7-45.2 MCV (test code = 787-2) 85.9 fL 80.6-95.5 MCH (test code = 785-6) 27.7 pg 25.9-32.8 MCHC (test code = 786-4) 32.2 g/dL 31.6-35.1 RDW-SD (test code = 24515-8) 39.6 fL 39-49.9 RDW-CV (test code = 788-0) 12.5 % 12-15.5 PLT (test code = 777-3) See_Comment [Automated messa ge] The system which generated this result transmitted reference range: 166 - 358 10*3/?L. The reference range was not used to interpret this result as normal/abnormal. MPV (test code = 29173-6) 10.0 fL 9.5-12.9 NRBC/100 WBC (test code = 4009945060) See_Comment [Automated me ssage] The system which generated this result transmitted reference range: 0.0 - 10.0 /100 WBCs. The reference range was not used to interpret this result as normal/abnormal. NRBC x10^3 (test code = 1357301458) <0.01 See_Comment [Automated me ssage] The system which generated this result transmitted reference range: 10*3/?L. The reference range was not used to interpret this result as normal/abnormal. GRAN MAT (NEUT) % (test code = 770-8) 71.0 % IMM GRAN % (test code = 7831426159) 0.30 % LYMPH % (test code = 736-9) 20.0 % MONO % (test code = 5905-5) 7.5 % EOS % (test code = 713-8) 0.8 % BASO % (test code = 706-2) 0.4 % GRAN MAT x10^3(ANC) (test code = 5033767637) 6.76 10*3/uL 1.88-7.09 IMM GRAN x10^3 (test code = 8683874140) 0.03 10*3/uL 0-0.06 LYMPH x10^3 (test code = 731-0) 1.91 10*3/uL 1.32-3.29 MONO x10^3 (test code = 742-7) 0.72 10*3/uL 0.33-0.92 EOS x10^3 (test code = 711-2) 0.08 10*3/uL 0.03-0.39 BASO x10^3 (test code = 704-7) 0.04 10*3/uL 0.01-0.07 [facility] URINALYSIS W SPECIFIC [id number] 19:08:00* Test Item Value Reference Range Interpretation Comme nts POCT U SP GRAV (test code = 3255) . 1.005-1.025 POCT PH U (test code = 3254) 7 mg/dl 5-8 POCT U LEUK EST (test code = 3263) TRACE Negative - Negative POCT U NIT (test code = 3262) NEGATIVE Negative - Negati ve POCT U PROT (test code = 3259) TRACE Negative - Negat taco POCT U GLU (test code = 3256) NEGATIVE Negative - Negati ve POCT U KETONE (test code = 3258) NEGATIVE Negative - Neg ative POCT U UROBILI (test code = 3260) . 0.2-1 POCT U BILI (test code = 3261) . Negative - Negat taco POCT U BLD (test code = 3257) NEGAITVE Negative - Negati ve POCT U COLOR (test code = 3266) POCT U APPEAR (test code = 3267) [facility]PO[facility] [id number] 19:08:00* Test Item Value Reference Range Interpretation Comme nts POCT PREG (test code = 1605) Positive On board controls acceptable with C Line (test code = 3574) Yes POCT PREG LOT # (test code = 3575) POCT PREG TEST DATE ( test code = 3576) [facility] Notes Date/Time Note Provider Source 2024-05-19 16:39:26 Chief Complaint Patient presents with Sore Throat ear Ear Pain Body aches. Fatigue, no appetite, and headache Symptoms since yesterday Elisa Verma LVN [facility] 2023-04-16 11:01:01 Chief Complaint Patient presents with Abdominal Pain Abdominal pain for about a week Elisa Verma LVN [facility]
--- NOTE | 2024-05-23 02:00 | EDPHYS ---
Physician Documentation [facility] Name: Triny Celeste Age: 39 yrs Sex: Female : 1985 Arrival Date: 05/23/2024 Time: 01:25 Bed 20 Private MD: ED Physician Duc Harris HPI: 05/23 01:57 This 39 yrs old Female presents to ER via Ambulatory with complaints of Ear Pain. sp3 01:57 39-year-old female with history of anxiety now presents with left ear pain. Patient has sp3 seen her PCP who put her on azithromycin pack for left-sided otitis media. Patient is taken OTC acetaminophen only for pain control and presents tonight for worsening left ear pain. She denies any fever, jaw pain, headache, neck pain, chest pain, shortness of breath, rash, known sick contacts or any other signs or symptoms on ROS at this time.. 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 - Infectious Disease History:: Denies. - Social history:: Smoking status: Patient denies any tobacco usage or history of. ROS: 01:57 Constitutional: Negative for fever, chills, and weight loss, Eyes: Negative for injury, sp3 pain, redness, and discharge, Neck: Negative for injury, pain, and swelling, Cardiovascular: Negative for chest pain, palpitations, and edema, Respiratory: Negative for shortness of breath, cough, wheezing, and pleuritic chest pain, Abdomen/GI: Negative for abdominal pain, nausea, vomiting, diarrhea, and constipation, Back: Negative for injury and pain, MS/Extremity: Negative for injury and deformity, Skin: Negative for injury, rash, and discoloration, Neuro: Negative for headache, weakness, numbness, tingling, and seizure, Psych: Negative for depression, anxiety, suicide ideation, homicidal ideation, and hallucinations, Allergy/Immunology: Negative for hives, rash, and allergies, Endocrine: Negative for neck swelling, polydipsia, polyuria, polyphagia, and marked weight changes, 01:57 All other systems are negative, Exam: 01:57 Constitutional: This is a well developed, well nourished patient who is awake, alert, sp3 and in no acute distress. Head/Face: Normocephalic, atraumatic. Eyes: Pupils equal round and reactive to light, extra-ocular motions intact. Lids and lashes normal. Conjunctiva and sclera are non-icteric and not injected. Cornea within normal limits. Periorbital areas with no swelling, redness, or edema. Neck: Trachea midline, no thyromegaly or masses palpated, and no cervical lymphadenopathy. Supple, full range of motion without nuchal rigidity, or vertebral point tenderness. No Meningismus. Chest/axilla: Normal chest wall appearance and motion. Nontender with no deformity. No lesions are appreciated. Cardiovascular: Regular rate and rhythm with a normal S1 and S2. No gallops, murmurs, or rubs. Normal PMI, no JVD. No pulse deficits. Respiratory: Lungs have equal breath sounds bilaterally, clear to auscultation and percussion. No rales, rhonchi or wheezes noted. No increased work of breathing, no retractions or nasal flaring. Abdomen/GI: Soft, non-tender, with normal bowel sounds. No distension or tympany. No guarding or rebound. No evidence of tenderness throughout. Back: No spinal tenderness. No costovertebral tenderness. Full range of motion. Skin: Warm, dry with normal turgor. Normal color with no rashes, no lesions, and no evidence of cellulitis. MS/ Extremity: Pulses equal, no cyanosis. Neurovascular intact. Full, normal range of motion. Neuro: Awake and alert, GCS 15, oriented to person, place, time, and situation. Cranial nerves II-XII grossly intact. Motor strength 5/5 in all extremities. Sensory grossly intact. Cerebellar exam normal. Normal gait. Psych: Awake, alert, with orientation to person, place and time. Behavior, mood, and affect are within normal limits. 01:57 ENT: Left-sided TM mildly erythematous with serous fluid behind the tympanic membrane. Remainder of ENT exam normal. Vital signs normal.. Vital Signs: 01:32 BP 112 / 74; Pulse 76; Resp 18 S; Temp 98.5(O); Pulse Ox 98% on R/A; Weight 58.97 kg; ha1 Height 5 ft. 3 in. ; 02:09 BP 102 / 71; Pulse 67; Resp 18; Temp 98.5; Pulse Ox 100% ; Pain 9/10; bm8 01:32 Body Mass Index 23.03 (58.97 kg, 160.02 cm) ha1 02:09 Pain Scale: Adult bm8 Jhoana Coma Score: 02:09 Eye Response: spontaneous(4). Motor Response: obeys commands(6). Verbal Response: bm8 oriented(5). Total: 15. MDM: 01:48 Medical Screening Exam initiated sp3 01:58 Data reviewed: vital signs, nurses notes. ED course: 39-year-old female with left-sided sp3 ear pain from serous otitis media. I am not highly suspicious of bacterial infection I have educated patient on virus versus bacteria for cause of otitis. Patient is already started azithromycin and she will finish the course. I will add on diclofenac and tramadol for symptomatic control and she will use Sudafed OTC for further drainage of the middle ear space. Clinically of ruled out sepsis, shock or any other critical process. Patient to follow-up with her PCP.. Administered Medications: 02:09 Drug: Ketorolac IM 30 mg IM once Route: IM; Site: left deltoid; bm8 02:12 Follow up: Response: No adverse reaction bm8 Disposition Summary: 05/23/24 01:59 Discharge Ordered Notes: Location: Home sp3 Condition: Stable sp3 Diagnosis - Serous otitis media, left otalgia sp3 Followup: sp3 - With: Private Physician - When: Upon discharge from the Emergency Department - Reason: Continuance of care Discharge Instructions: - Discharge Summary Sheet sp3 - Otitis Media With Effusion, Adult sp3 Forms: - Medication Reconciliation Form sp3 - Antibiotic Education sp3 - Prescription Opioid Use sp3 - Patient Portal Instructions sp3 - Leadership Thank You Letter sp3 Prescriptions: - Diclofenac Sodium 75 mg Oral Tablet Sustained Release - take 1 tablet ORAL route 2 times per day; 30 tablet; Refills: 0, Product sp3 Selection Permitted - Tramadol 50 mg Oral Tablet - take 1 tablet ORAL route every 8 hours as needed; 12 tablet; Refills: 0, sp3 Product Selection Permitted Signatures: Duc Harris MD MD sp3 Shyla Powell RN RN ha1 Dewey Thompson RN RN bm8
--- NOTE | 2024-05-23 02:00 | ER ---
Nurse's Notes [facility] Name: Triny Celeste Age: 39 yrs Sex: Female : 1985 Arrival Date: 05/23/2024 Time: 01:25 Bed 20 Private MD: Diagnosis: Serous otitis media, left otalgia Presentation: 05/23 01:32 Chief complaint: Patient states: LEFT EAR PAIN. GOT DIAGNOSED WITH STREP THREE DAYS ha1 AGO, ALREADY TAKING ANTIBIOTICS. 01:32 Coronavirus screen: Client denies travel out of the [place] in the last 14 days. Ebola ha1 Screen: No symptoms or risks identified at this time. Initial Sepsis Screen: Does the patient meet any 2 criteria? No. Patient's initial sepsis screen is negative. Does the patient have a suspected source of infection? No. Patient's initial sepsis screen is negative. Risk Assessment: Do you want to hurt yourself or someone else? Patient reports no desire to harm self or others. Onset of symptoms was May 23, 2024. 01:32 Method Of Arrival: Ambulatory ha1 01:32 Acuity: ALANNAH 5 ha1 Triage Assessment: 01:35 General: Appears uncomfortable, Behavior is calm, cooperative. Pain: Complains of pain ha1 in left ear Pain currently is 10 out of 10 on a pain scale. Quality of pain is described as aching, throbbing. Neuro: Level of Consciousness is awake, alert, obeys commands, Oriented to person, place, time, situation. Cardiovascular: Capillary refill < 3 seconds Patient's skin is warm and dry. Respiratory: Airway is patent Respiratory effort is even, unlabored, Respiratory pattern is regular, symmetrical. GI: No signs and/or symptoms were reported involving the gastrointestinal system. Abdomen is round non-distended. Derm: Skin is pink, warm \T\ dry. 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 - Infectious Disease History:: Denies. - Social history:: Smoking status: Patient denies any tobacco usage or history of. Screenin:[facility] ED Fall Risk Assessment (Adult) History of falling in the last 3 months, bm8 including since admission No falls in past 3 months (0 pts) Confusion or Disorientation No (0 pts) Intoxicated or Sedated No (0 pts) Impaired Gait No (0 pts) Mobility Assist Device Used No (0 pt) Altered Elimination No (0 pt) Score/Fall Risk Level 0 - 2 = Low Risk Oriented to surroundings, Maintained a safe environment, Educated pt \T\ family on fall prevention, incl call for assistance when getting out of bed, Assessed \T\ reinforced patient's understanding of fall precautions, Hourly rounding (assess needs \T\ fall precautionary measures) done, Used ambulatory aids as needed (educated on \T\ assisted with), Used gait belt as appropriate. Abuse screen: Denies threats or abuse. Nutritional screening: No deficits noted. Tuberculosis screening: No symptoms or risk factors identified. Assessment: 02:09 Reassessment: Patient appears in no apparent distress at this time. Patient and/or bm8 family updated on plan of care and expected duration. Pain level reassessed. Patient is alert, oriented x 3, equal unlabored respirations, skin warm/dry/pink. EENT: Reports pain in left ear Pain is 10 out of 10 on a pain scale. left ear pain. Vital Signs: 01:32 BP 112 / 74; Pulse 76; Resp 18 S; Temp 98.5(O); Pulse Ox 98% on R/A; Weight 58.97 kg; ha1 Height 5 ft. 3 in. ; 02:09 BP 102 / 71; Pulse 67; Resp 18; Temp 98.5; Pulse Ox 100% ; Pain 9/10; bm8 01:32 Body Mass Index 23.03 (58.97 kg, 160.02 cm) ha1 02:09 Pain Scale: Adult bm8 Jhoana Coma Score: 02:09 Eye Response: spontaneous(4). Motor Response: obeys commands(6). Verbal Response: bm8 oriented(5). Total: 15. ED Course: 01:29 Patient arrived in ED. [email or web address] 01:46 Duc Harris MD is Attending Physician. sp3 01:46 Triage completed. ha1 02:09 Dewey Thompson, RN is Primary Nurse. bm8 02:09 Patient has correct armband on for positive identification. Bed in low position. Call bm8 light in reach. Side rails up X 1. Provided Education on: post er care. Client placed on continuous cardiac and pulse oximetry monitoring. NIBP monitoring applied. Pulse ox on. NIBP on. 02:09 No provider procedures requiring assistance completed. Patient did not have IV access bm8 during this emergency room visit. 02:11 Arm band placed on right wrist. bm8 Administered Medications: 02:09 Drug: Ketorolac IM 30 mg IM once Route: IM; Site: left deltoid; bm8 02:12 Follow up: Response: No adverse reaction bm8 Medication: 02:09 VIS not applicable for this client. bm8 Outcome: 01:59 Discharge ordered by MD. [email or web address] 02:09 Discharged to home ambulatory, bm8 02:09 Condition: stable 02:09 Discharge instructions given to patient, Instructed on discharge instructions, follow up and referral plans. no drinking with medication, no driving heavy equipment, medication usage, safety practices, Demonstrated understanding of instructions, follow-up care, medications, Prescriptions given X 3, 02:12 Patient left the ED. bm8 Signatures: Duc Harris MD MD sp3 Kanwal Valerio6 Shyla Powell, RN RN ha1 Dewey Thompson, RN RN bm8
[2024-05-23] MEDS ORDERED: KETOROLAC 30 MG/ML INJ ONE (02:02)
[2024-05-23 02:41] VITALS: TEMP 98.5
[2024-05-23 02:42] VITALS: BP 102/71; O2SAT 100
== END 2024-05-23 02:12 | disposition home or self-care (01) ==
LOC: ER 01:25
DX: H65.92 Unspecified nonsuppurative otitis media, left ear (principal)
CPT/HCPCS: 96372; 99284